=== PATIENT | female | born 1990 | race Caucasian/White ===

== ENCOUNTER 2020-03-05 18:35 | Emergency (ER) | payer BC, SELFPAY ==
[2020-03-05 19:35] VITALS: BP 157/94; PULSE 86; RESP 18; TEMP 37.1; O2SAT 99; BMI 39.4
--- NOTE | 2020-03-05 19:57 | HMH.EDUTC ---
[facility] [place] Disposition Clinical Impression: Puncture wound Disposition: Home, Self-Care Condition on Discharge: Good Instructions: Animal Bites, DI for Puncture Wound Additional Instructions: Keep area clean and dry Take medication as prescribed to help prevent infection Return if needed Elevate foot may help with swelling and bruising Follow up with Family Doctor if needed Straight to ER if any life threatening symptoms Prescriptions: Amoxicillin/Potassium Clav [Augmentin 875-125 Tablet] 1 tab PO Q12H 5 Days #10 tab Transmission Status: Pending to [facility]/pharmacy #[id number] Referrals: Matthew Alves APRN [Primary Care Provider] - Forms: Work/School Release Medical Decision Making - Lauro Inquiry Pt receiving controlled substance: No Lauro was queried for this patient: No Vital Signs: 03/05/20 19:35 03/05/20 19:59 Temperature 98.7 F 98.7 F Temperature Source Oral Pulse Rate 86 Pulse Rate [Left] 86 Respiratory Rate 18 18 Blood Pressure 157/94 H Blood Pressure [Right Arm] 157/94 H Blood Pressure Mean [Right Arm] 115 Blood Pressure Source [Right Arm] Automatic Cuff Blood Pressure Position [Right Arm] Sitting 02 Sat by Pulse Oximetry 99 Oxygen Delivery Method Room Air Orders (Tests/Meds): ED MEDICATIONS Discontinued Medications Generic Name Dose Route Start Last Admin Trade Name Freq PRN Reason Stop Dose Admin Tetanus/Reduced Diphtheria/Acell Pertussis 0.5 ml 03/05/20 19:50 03/05/20 19:55 Tet/Diphth/Pert-Adult 0.5ml Syringe IM 03/05/20 19:51 0.5 ml .ONCE ONE Administration Medical Decision Narrative: Discussed with patient and she was unsure if the dogs tooth or nail caused injury to inside of right foot appears less than 0.5cm no active bleeding with skin flap close over wound Patient agreed no stitches due to small wound and risk of infection if it was tooth Patient aware of how to clean and watch for infection and antibiotics given for prophylaxis [facility] [place] HPI - General Stated complaint: AO 03/05/20 CUr to r foot Time Seen by Provider: 03/05/20 19:35 Mode of Arrival: Ambulatory Source of Information: Patient Limitations: No Limitations Description of Symptoms (Recalled from Triage Doc. by RN): Laceration to right foot- Dogs tooth got caught on it when the ran into each other HEENT Symptoms (Recalled from RN notes): No Resp Symptoms (Recalled from RN notes): No Skin Symptoms (Recalled from RN notes): Yes MS Symptoms (Recalled from RN notes): No Functional Status (Recalled from RN notes): stable - History of Present Illness Provider Complaint: Patient states that she was playing with ball and her and the dog was running and then ran into each other State that she is not sure if the dogs nail or tooth hit her in the right foot causing small cut on the inside of her foot States that she immediatly cleaned it up and wasnt sure when her last tetanus was and if she may need to get stiches so she come in to get it checked - Related Data Previous Rx's Medication Instructions Recorded Azithromycin [Z-Darryl 250mg Tab*] 250 mg PO UD DOSE PK #6 tab 01/14/19 predniSONE [Prednisone 5mg Tab 5 mg PO UD DOSE PK #21 pack 01/14/19 Dose-Pack] Brompheniramine/Pseudoephed/Dm 5 ml PO Q6HP PRN #240 syrup 03/20/19 [Bromfed Dm Cough Syrup] levoFLOXacin [Levaquin 500mg 500 mg PO DAILY #7 tab 03/20/19 tab] methylPREDNISolone [Medrol] 4 mg PO DIRECTED 6 Days #21 03/20/19 tab.ds.pk Amoxicillin/Potassium Clav 1 tab PO Q12H 5 Days #10 tab 03/05/20 [Augmentin 875-125 Tablet] Allergies Allergy/AdvReac Type Severity Reaction Status Date / Time Sulfa (Sulfonamide Allergy Intermediate Verified 03/05/20 19:58 Antibiotics) [SULFA (SULFONAMIDE ANTIBIOTICS)] sulfamethoxazole Allergy Intermediate Verified 03/05/20 19:58 [From BACTRIM] trimethoprim [From BACTRIM] Allergy Intermediate Verified 03/05/20 19:58 - Worker's Comp Is this a Worker's Comp gutierrez
[2020-03-05 19:59] VITALS: BP 157/94; PULSE 86; RESP 18; TEMP 37.1; O2SAT 99
== END 2020-03-05 20:12 | disposition home or self-care (01) ==
LOC: ER 18:39 → UTC 18:44
PROVIDERS: Emergency Provider Nurse Practitioner; PCP Nurse Practitioner Family
DX: S91.331A Puncture wound without foreign body, right foot, initial encounter (principal); W45.8XXA Other foreign body or object entering through skin, initial encounter; Y92.019 Unspecified place in single-family (private) house as the place of occurrence of the external cause; Z23 Encounter for immunization; Z88.2 Allergy status to sulfonamides
CPT/HCPCS: 90715; 99201

== ENCOUNTER 2021-09-19 09:23 | Emergency (ER) | payer BC, SELFPAY ==
[2021-09-19 09:30] VITALS: BP 144/88; PULSE 111; RESP 20; TEMP 36.8; O2SAT 97; BMI 46.5
--- NOTE | 2021-09-19 09:49 | HMH.EDUTC ---
[facility] [place] Disposition Clinical Impression: Sinusitis Qualifiers: Sinusitis location: unspecified location Chronicity: unspecified Qualified Code(s): J32.9 - Chronic sinusitis, unspecified Disposition: Home, Self-Care Condition on Discharge: Good Instructions: Sinusitis, DI for Sinusitis Additional Instructions: *Monitor Temp, Over the counter Motrin or Tylenol as directed/as needed Tylenol every 4 hours and Motrin every 6 hours (as long as your family doctor has told you that you can take it) for fever or pain. and straight to ER if unable to lower temp less than 101.0 after medication given *Warm salt water gargles may help to soothe the throat *Throat Lozenges *Warm fluids like tea with honey may help to soothe the throat *Sleep elevated *Humidifier/Vaporizer *Bromfed may cause drowsiness. Know how it effects you (your child) before driving, caring for small child, or sending your child to school. Not other antihistamines/allergy medications while taking bromfed Follow up IMMEDIATELY for new or worsening symptoms or no Noticeable improvement over the next 48-72 hours. 911 for difficulty breathing or swallowing Prescriptions: Amoxicillin/Potassium Clav [Amox-Clav 875-125 mg Tablet] 1 tab PO BID #14 tab Transmission Status: Pending to [facility] methylPREDNISolone [Medrol 4mg tab] 4 mg PO DIRECTED #21 tab Transmission Status: Pending to [facility] Referrals: Shaunna Marshall [Primary Care Provider] - As needed Time of Disposition: 10:01 Medical Decision Making - Lauro Inquiry Pt receiving controlled substance: No Lauro was queried for this patient: No Vital Signs: 09/19/21 09:30 Temperature 98.3 F Temperature Source Oral Pulse Rate [Left Brachial] 111 H Respiratory Rate 20 Blood Pressure [Left Arm] 144/88 H Blood Pressure Mean [Left Arm] 106 Blood Pressure Source [Left Arm] Automatic Cuff Blood Pressure Position [Left Arm] Sitting 02 Sat by Pulse Oximetry 97 Oxygen Delivery Method Room Air [facility] [place] HPI - General Stated complaint: cough, congestion, runny nose Time Seen by Provider: 09/19/21 09:49 Mode of Arrival: Ambulatory Source of Information: Patient Limitations: No Limitations Description of Symptoms (Recalled from Triage Doc. by RN): PATIENT C/O CONGESTION, SINUS PRESSURE, COUGH, RUNNY NOSE AND SORE THROAT SINCE WEDNESDAY HEENT Symptoms (Recalled from RN notes): Yes Resp Symptoms (Recalled from RN notes): Yes Skin Symptoms (Recalled from RN notes): No MS Symptoms (Recalled from RN notes): No Functional Status (Recalled from RN notes): WNL - History of Present Illness Provider Complaint: Patient states that she has been doing better since they started her on singular but about a week ago she started having sinus congestion and it has continued to get worse since Wednesday States that she is having sinus pain and pressure behind her eyes, cough and scratchy throat so today when she was still not feeling well she came in - Related Data Home Medications Medication Instructions Recorded Confirmed Cetirizine HCl [Zyrtec 10mg Tab*] 10 mg PO DAILY 09/19/21 09/19/21 Montelukast Sodium [Singulair 10mg 10 mg PO PM 09/19/21 09/19/21 tablet] Topiramate [Topamax 25mg tablet] 50 mg PO BID 09/19/21 09/19/21 Previous Rx's Medication Instructions Recorded Amoxicillin/Potassium Clav 1 tab PO BID #14 tab 09/19/21 [Amox-Clav 875-125 mg Tablet] methylPREDNISolone [Medrol 4mg 4 mg PO DIRECTED #21 tab 09/19/21 tab] Allergies Allergy/AdvReac Type Severity Reaction Status Date / Time Sulfa (Sulfonamide Allergy Intermediate Verified 03/05/20 19:58 Antibiotics) [SULFA (SULFONAMIDE ANTIBIOTICS)] sulfamethoxazole Allergy Intermediate Verified 03/05/20 19:58 [From BACTRIM] trimethoprim [From BACTRIM] Allergy Intermediate Verified 03/05/20 19:58 - Worker's Comp Is this a Worker's Comp case?: No H History - Hepatit
[2021-09-19 10:00] VITALS: BP 144/88; PULSE 111; RESP 20; TEMP 36.8; O2SAT 97
== END 2021-09-19 10:07 | disposition home or self-care (01) ==
PROVIDERS: Emergency Provider Nurse Practitioner; PCP Emergency Medicine
DX: J32.9 Chronic sinusitis, unspecified (principal); Z88.2 Allergy status to sulfonamides
CPT/HCPCS: 99212; G0463

== ENCOUNTER 2021-12-02 19:38 | Emergency (ER) | payer BC, SELFPAY ==
[2021-12-02 19:53] VITALS: BP 142/92; PULSE 95; RESP 16; TEMP 39.3; O2SAT 97; BMI 37.8
[2021-12-02 20:01] LABS: UTC Strep Screen (Rapid) Negative (Negative)
--- NOTE | 2021-12-02 20:12 | HMH.EDUTC ---
[facility] [place] Clinical Impression: Viral syndrome Disposition: Home, Self-Care Condition on Discharge: Good Instructions: DI for COVID-19 (Suspected or Confirmed ), Preventing the Spread of Coronavirus Discharge Instructions Additional Instructions: Drink plenty of fluids. Take tylenol or ibuprofen for pain or fever. Take the medications as directed. Follow up with your regular doctor. GO TO THE ER FOR ANY WORSENING SYMPTOMS Quarantine until you know the results of your covid-19 test. Notify your school or workplace of your results and follow their instructions regarding return to work/school. Prescriptions: Ibuprofen [Ibuprofen 800mg Tablet] 800 mg PO Q8HP PRN #30 tab PRN Reason: Moderate Pain Transmission Status: Pending to [facility] Ondansetron [Zofran 4mg ODT] 4 mg PO Q8HP PRN #20 tab PRN Reason: Nausea Transmission Status: Sent to [facility] Benzonatate [Benzonatate 100mg cap] 100 mg PO TIDP PRN #30 cap PRN Reason: Cough Transmission Status: Sent to [facility] Referrals: Shaunna Marshall [Primary Care Provider] - Time of Disposition: 20:35 Medical Decision Making - Medical Records Medical records reviewed: No: I reviewed the patient's medical records. - Lauro Inquiry Pt receiving controlled substance: No Vital Signs: 12/02/21 19:53 12/02/21 20:36 Temperature 102.8 F H 100.8 F H Temperature Source Oral Pulse Rate 95 H Pulse Rate [Left] 95 H Respiratory Rate 16 16 Blood Pressure 142/92 H Blood Pressure [Right Arm] 142/92 H Blood Pressure Mean [Right Arm] 108 02 Sat by Pulse Oximetry 97 - Lab Data Lab results reviewed: Yes: I reviewed the patient's lab results. Lab Results 12/02/21 19:51: Strep Scn Rapid Clinic Negative Orders (Tests/Meds): ORDERS Category Date Time Status Covid-19 Nasal PCR ([facility]) Routine Lab 12/02/21 19:51 Received Strep Screen Confirmation Stat Micro 12/02/21 19:51 Received [facility] HPI - General Stated complaint: GOFF, SORE THROAT Time Seen by Provider: 12/02/21 20:00 Mode of Arrival: Ambulatory Source of Information: Patient Limitations: No Limitations Description of Symptoms (Recalled from Triage Doc. by RN): patient comes in today with complaints of headache, sore throat, fever, chills, body aches. symptoms began last night. HEENT Symptoms (Recalled from RN notes): Yes Resp Symptoms (Recalled from RN notes): Yes Skin Symptoms (Recalled from RN notes): No MS Symptoms (Recalled from RN notes): No Functional Status (Recalled from RN notes): n/a - History of Present Illness Provider Complaint: She states that for the past 8 hours she has progressively felt worse and worse. She is running a fever despite taking ibuprofen and tylenol. She denies shortness of breath. She c/o body aches, chills, nausea and just generally feeling awful. She works at [employer], so she likely has been exposed to covid-19. - Related Data Home Medications Medication Instructions Recorded Confirmed Cetirizine HCl [Zyrtec 10mg Tab*] 10 mg PO DAILY 09/19/21 09/19/21 Montelukast Sodium [Singulair 10mg 10 mg PO PM 09/19/21 09/19/21 tablet] Topiramate [Topamax 25mg tablet] 50 mg PO BID 09/19/21 09/19/21 Previous Rx's Medication Instructions Recorded Amoxicillin/Potassium Clav 1 tab PO BID #14 tab 09/19/21 [Amox-Clav 875-125 mg Tablet] methylPREDNISolone [Medrol 4mg 4 mg PO DIRECTED #21 tab 09/19/21 tab] Benzonatate [Benzonatate 100mg 100 mg PO TIDP PRN #30 cap 12/02/21 cap] Ibuprofen [Ibuprofen 800mg 800 mg PO Q8HP PRN #30 tab 12/02/21 Tablet] Ondansetron [Zofran 4mg ODT] 4 mg PO Q8HP PRN #20 tab 12/02/21 Allergies Allergy/AdvReac Type Severity Reaction Status Date / Time Sulfa (Sulfonamide Allergy Intermediate Verified 12/02/21 20:02 Antibiotics) [SULFA (SULFONAMIDE ANTIBIOTICS)] sulfamethoxazole Allergy Intermediate
--- NOTE | 2021-12-02 20:18 | XR_ITS ---
PROCEDURE INFORMATION: Exam: XR Chest Exam date and time: 12/02/2021 8:25 PM Age: 31 years old Clinical indication: Cough TECHNIQUE: Imaging protocol: Radiologic exam of the chest. Views: 2 views. COMPARISON: CR XR CHEST 2V 03/20/2019 8:07 PM FINDINGS: Lungs: Unremarkable. No consolidation. Pleural spaces: Unremarkable. No pleural effusion. No pneumothorax. Heart/Mediastinum: Unremarkable. No cardiomegaly. Bones/joints: Unremarkable. IMPRESSION: No acute findings.
[2021-12-02 20:36] VITALS: BP 142/92; PULSE 95; RESP 16; TEMP 38.2
== END 2021-12-02 20:39 | disposition home or self-care (01) ==
PROVIDERS: Nurse Practitioner Family; Emergency Provider Emergency Medicine; PCP Emergency Medicine
DX: B34.9 Viral infection, unspecified (principal); Z20.822 Contact with and (suspected) exposure to COVID-19
CPT/HCPCS: 71046; 87880; 99212; C9803; G0463; U0003; U0005

== ENCOUNTER 2025-01-31 18:07 | Emergency (ER) | payer BC, SELFPAY ==
[2025-01-31 18:18] VITALS: BP 165/105; PULSE 105; RESP 18; TEMP 36.6; O2SAT 100; BMI 49.8
--- NOTE | 2025-01-31 18:18 | ECG_ITS ---
APPROVED REPORT Exam: Resting ECG HR:107 bpm ECG Measurements Heart Rate 107 AXES OR 128 P 44 QRSd 86 QRS 84 QT 340 T 23 QTc 403 Conclusion SINUS TACHYCARDIA ABNORMAL RHYTHM ECG UNCONFIRMED REPORT Electronically signed by : ARMANI ZHANG, 02/01/2025 00:33:20
--- NOTE | 2025-01-31 18:31 | XR_ITS ---
PROCEDURE INFORMATION: Exam: XR Chest Exam date and time: 01/31/2025 6:49 PM Age: 34 years old Clinical indication: Other: Dizziness TECHNIQUE: Imaging protocol: Radiologic exam of the chest. Views: 1 view. COMPARISON: CR XR CHEST 2V 12/02/2021 8:25 PM FINDINGS: Lungs: Unremarkable. No consolidation. Pleural spaces: Unremarkable. No pleural effusion. No pneumothorax. Heart/Mediastinum: Unremarkable. No cardiomegaly. Bones/joints: Unremarkable. IMPRESSION: No acute findings.
[2025-01-31 18:40] LABS: Microscopic, Urine URINE MICROSCOPIC (MICROSCOPIC)
[2025-01-31 18:43] LABS: Bilirubin,Urine Negative (Negative); Color,Urine YELLOW (Yellow); Glucose,Urine (UA) Negative (Negative); Hematocrit 44.4 % (37.0-47.0); Hemoglobin 14.3 g/dL (12.2-16.2); Immature Granulocytes % 0.4 %; Ketones,Urine Negative (Negative); Leukocyte Esterase,Urine Negative (Negative); Mean Corpuscular HGB Conc 32.2 g/dL (31.8-35.4); Mean Corpuscular Hemoglobin 27.9 pg (27.0-31.2); Mean Corpuscular Volume 86.5 fl (81-99); Nucleated Red Blood Cells % 0 %; PH,Urine 6.0 (5.0-8.5); Platelet Count 271 K/mm3 (142-424); Protein,Urine Negative (Negative); Red Blood Count 5.13 M/mm3 (4.20-5.40); Red Cell Distribution Width-SD 40.5 fL; Specific Gravity, Urine <= 1.005 (1.005-1.030); Urobilinogen,Urine 0.2 EU/dl (0.2); White Blood Count 9.8 K/mm3 (4.8-10.8)
[2025-01-31 18:48] LABS: Urine Pregnancy, HCG Qual. Negative (Negative)
[2025-01-31 19:07] LABS: Alanine Aminotransferase 59 U/L (12-78); Albumin Level 4.5 g/dl (3.5-5.0); Albumin/Globulin Ratio 1.6 (1.1-1.8); Alkaline Phosphatase 147 U/L (38-126); Anion Gap 17.9 mEq/L (5-15); Aspartate Amino Transferase 47 U/L (14-36); Bilirubin,Total 0.6 mg/dl (0.2-1.3); Blood Urea Nitrogen 13 mg/dl (7-17); Calcium 9.3 mg/dl (8.4-10.2); Carbon Dioxide 24 mmol/L (22.0-30.0); Chloride 102 mmol/L (98-107); Creatinine Clearance Estimated 57 mL/min (50-200); Creatinine,Serum 1.20 mg/dl (0.52-1.04); Estimated Glomerular Filt Rate 51 ml/min (>60); GFR (African American) 62 ML/MIN (>60); Globulin 2.9 g/dL (1.3-3.2); Glucose 131 mg/dl (74-100); Magnesium 2.1 mg/dl (1.6-2.3); Potassium 3.9 mmoL/L (3.5-5.1); Sodium 140 mmol/L (136-145); Total Protein,Serum 7.4 g/dl (6.3-8.2)
[2025-01-31 19:10] LABS: Bacteria,Urine Trace /lpf; WBC,Urine Occasional #/hpf (0-3)
[2025-01-31 19:19] LABS: Troponin I < 0.01 ng/ml (0.00-0.034)
== END 2025-01-31 20:29 | disposition left against medical advice (07) ==
PROVIDERS: Emergency Provider Student in an Organized Health Care Education/Training Program; PCP Nurse Practitioner Family
DX: R00.0 Tachycardia, unspecified (principal); R42 Dizziness and giddiness
CPT/HCPCS: 71045; 80053; 81001; 81025; 83735; 84484; 85025; 93005; 99283